=== PATIENT | female | born 1955 | race Caucasian/White ===

== ENCOUNTER → 2024-11-20 | Outpatient (CLI) | payer MEDICARE, SELFPAY ==
--- NOTE | 2024-11-20 08:45 | XR_ITS ---
Examination: Screening digital mammography, bilateral Computer aided detection 3-D breast Tomosynthesis, bilateral Date and time of exam: November 20, 2024 0844 hrs. Compared to mammograms dating to January 02, 2021 Indication: Screening Technique: Nonmagnified MLO, CC views of the breasts to been obtained, reconstructed from 3-D Tomosynthesis images. R2 computer aided detection program utilized for evaluation of suspicious masses and/or abnormal calcifications. 3-D Tomosynthesis images obtained. Findings: Scattered areas of fibroglandular density. Breast biopsy markers nipple level and lower left breast No interval suspicious masses Impression: BI-RADS category II: Benign Findings. Recommend 1 year follow-up mammogram.
== END | disposition home or self-care (01) ==
PROVIDERS: PCP Family Medicine; Referring Provider Family Medicine; Visit Provider Family Medicine
DX: Z12.31 Encounter for screening mammogram for malignant neoplasm of breast (principal); R92.323 Mammographic fibroglandular density, bilateral breasts
CPT/HCPCS: 77063; 77067

== ENCOUNTER 2024-12-28 05:53 | Emergency (ER) | payer MEDICARE, BC, SELFPAY ==
[2024-12-28 05:53] VITALS: BMI 25.7
[2024-12-28 06:00] VITALS: BP 178/95; PULSE 78; RESP 19; TEMP 36.4; O2SAT 100
--- NOTE | 2024-12-28 06:34 | EKG_ITS ---
[facility] Test Date: 2024-12-28 Pat Name: LATONYA GARCIA Department: Room: - Gender: Female Manager [place] : [id number] Requested By: Deepak Sahu Order Number: [id number] Reading MD: Deepak Sahu Measurements Intervals [place] Rate: 79 P: 34 TN: 172 QRS: 24 QRSD: 84 T: 33 QT: 412 QTc: 473 Interpretive Statements SINUS RHYTHM POSSIBLE LEFT VENTRICULAR HYPERTROPHY [VOLTAGE CRITERIA PLUS LAE OR QRS WIDENING] No previous ECG available for comparison /store/S0/[id number].pdf
--- NOTE | 2024-12-28 06:34 | PD.EDRME ---
Rapid Medical Screening Exam RME Arrival date/time: 12/28/24 05:53 69-year-old female with a history of hypertension, hypothyroidism, presents to the emergency room with a chief complaint of a headache and fatigue x 3 days. Patient states she has also had multiple elevated blood pressure readings. Patient states she has taken 3 different types of blood pressure medication. I have greeted and performed a focused initial assessment of this patient. A comprehensive ED assessment and evaluation of the patient, analysis of all test results, and completion of the medical decision making process will be conducted by additional ED providers. Chief Complaint: Headache Time Seen by Provider: 12/28/24 06:22 Vital signs: Vital Signs Temperature 97.5 F 12/28/24 06:00 Pulse Rate 78 12/28/24 06:00 Respiratory Rate 19 12/28/24 06:00 Blood Pressure 178/95 H 12/28/24 06:00 Pulse Oximetry (%) 100 12/28/24 06:00 Oxygen Delivery Method Room Air 12/28/24 06:00 Vital signs reviewed by provider: Yes
[2024-12-28 07:03] LABS: Basophils % (Auto) 0 % (0-2.5); Eosinophils % (Auto) 0 % (0-10); Hemoglobin 14.2 g/dL (12.0-16.0); Immature Granulocytes % (Auto) 0 % (0-0); Immature Granulocytes Auto 0.03 Thou/mm3 (0.00-0.00); Lymphocytes # (Auto) 1.7 Thou/mm3 (1.0-4.8); Lymphocytes % (Auto) 17 % (10-50); Mean Corpuscular HGB Conc 35.5 g/dl (31.0-37.0); Mean Corpuscular Hemoglobin 30.7 pg (25.0-35.0); Mean Corpuscular Volume 86 fL (80-100); Monocytes # (Auto) 0.6 Thou/mm3 (0.0-0.8); Monocytes % (Auto) 6 % (0-12); Neutrophils # (Auto) 7.8 Thou/mm3 (1.8-7.7); Neutrophils % (Auto) 77 % (37-80); Nucleated Red Blood Cell % 0 /100 WBC (0); Platelet Count 320 Thou/mm3 (140-440); RDW Standard Deviation 41.2 fL (36.4-46.3); Red Blood Count 4.63 Miln/mm3 (4.00-5.20); White Blood Count 10.2 Thou/mm3 (3.6-11.0)
[2024-12-28 07:25] LABS: Alanine Aminotransferase 15 U/L (10-49); Albumin, Serum 5.1 gm/dL (3.4-4.8); Albumin/Globulin Ratio 2.2 (1.2-2.2); Alkaline Phosphatase 50 U/L (46-116); Anion Gap 14 (7-16); Aspartate Amino Transferase 26 U/L (0-34); BUN/Creatinine Ratio 11 Ratio (12-20); Blood Urea Nitrogen 9 mg/dL (9-23); Calcium 9.3 mg/dL (8.3-10.6); Calcium (Corrected) 9.3 mg/dL (8.5-10.1); Carbon Dioxide 24.5 mMol/L (20.0-31.0); Chloride 90 mMol/L (98-107); Creatinine (Component) 0.8 mg/dL (0.6-1.3); Estimated Creatinine Clearance 61.1 mL/min (>60); Globulin 2.3 gm/dL (2.3-3.5); Glucose 113 mg/dL (74-106); Osmolality,Calculated 256 (275-295); Sodium 128 mMol/L (136-145); Total Protein 7.4 gm/dL (5.7-8.2); Troponin I < 0.020 ng/mL (0.0-0.045); eGFR > 60 See Note
[2024-12-28 07:36] LABS: B-Type Natriuretic Peptide 32 pg/mL (0-100)
[2024-12-28 07:45] LABS: INR 1.1 (0.9-1.3); Partial Thromboplastin Time 31.9 Seconds (22.0-36.0); Prothrombin Time 11.6 Seconds (9.0-12.2)
[2024-12-28 07:48] LABS: Collection Type, Urine Clean Catch
[2024-12-28 07:52] LABS: Bilirubin,Urine Negative (Negative); Blood,Urine Negative (Negative); Clarity,Urine Clear (Clear/Hazy); Color,Urine Lt-Yellow (Lt Yel-Yel); Glucose, Urine Negative (Negative); Hyaline Casts,Urine < 1 /hpf (0-1); Ketones,Urine 2+ (Negative); Leukocyte Esterase,Urine Positive (Negative); Nitrite,Urine Negative (Negative); Protein,Urine Negative (Neg - Trace); RBC,Urine 1 /hpf (0-3); Specific Gravity,Urine 1.015 (1.001-1.035); Squamous Epithelial Cell,Urine 1 /hpf (0-5); Urobilinogen,Urine Negative mg/dL (0.0-1.0); WBC,Urine 11 /hpf (0-5)
[2024-12-28 08:04] LABS: Magnesium 2.1 mg/dL (1.6-2.6)
[2024-12-28] MEDS: POTASSIUM CHLORIDE 20 mEq TABCR 40 MEQ PO ×2 (08:05→12:49)
[2024-12-28] MEDS: SODIUM CHLORIDE 0.9% 1000 ML 1,000 ML 100 ML IV (08:06)
[2024-12-28 08:28] LABS: Culture Indicated,Urine Yes
--- NOTE | 2024-12-28 08:29 | EDNOTE_ITS ---
ED Headache RME/HPI General Chief Complaint: Headache Stated Complaint: HEADACHE/ DIZZINESS Time Seen by Provider: 12/28/24 06:22 Arrival date/time: 12/28/24 05:53 RME / HPI RME / HPI Narrative: The patient is a 69-year-old female with significant past medical history of long standing hypertension, hypothyroidism presented to ED with chief complaint of headache that started 2 days ago. The patient's blood pressure was elevated at home, and visited her PCP yesterday evening, and was started on amlodipine 10 mg at night. However, this morning her blood pressure were elevated and continued to have headache. She is currently taking lisinopril, hydrochlorothiazide and amlodipine. She denied any lightheadedness, sore throat, chest pain, SOB, abdominal pain, any changes in bowel or bladder habit, leg swelling, fever or chills, nausea or vomiting. Related Data Home Medications ?Medication ?Instructions ?Recorded ?Confirmed levothyroxine 50 mcg capsule 50 mcg PO QDAY 12/18/18 lisinopril 20 mg tablet 20 mg PO QDAY 12/18/18 nebivolol 5 mg tablet (Bystolic) 5 mg PO QDAY 12/18/18 Previous Rx's ?Medication ?Instructions ?Recorded ibuprofen 600 mg tablet 600 mg PO Q6HR PRN PAIN #30 tabs 01/01/17 tramadol 50 mg tablet (Ultram) 50 mg PO Q6HR PRN PAIN #12 tabs 01/01/17 azithromycin 250 mg tablet See Rx Instructions PO .COM PLEX #6 12/19/18 (Zithromax Z-Claudio) tabs acetaminophen 500 mg tablet 500 mg PO Q6H PRN headache #20 tabs 12/28/24 ciprofloxacin HCl 500 mg tablet 500 mg PO BID #14 tabs 12/28/24 Allergies Allergy/AdvReac Type Severity Reaction Status Date / Time amoxicillin Allergy Rash Verified 12/19/18 20:31 Review of Systems Review of Systems Systems Reviewed: All systems reviewed, normal except as documented (Above) ED Exam Narrative Physical exam: General: Elderly, cooperative female, no acute distress, Alert and Oriented x 3 HEENT: Moist mucous membranes, oropharynx clear Neck: Supple, No masses, No JVD CVS: S1S2 Regular rate and rhythm, No murmurs, rubs or gallops Lungs: Clear to auscultation with no accessory use, no wheeze no rhonchi Abd: Soft, NT/ND, +BS, no organomegaly Ext: No edema, warm and well perfused Skin: No rash Psych: Appropriate mood and affect Course Quality Measures none Orders Category Date Time Status EKG (ED ONLY) *Do not use* NOW Care 12/28/24 06:[address] head/brain wo con Stat Exams 12/28/24 10:50 Completed EKG (ED Only) Stat Exams 12/28/24 06:34 Draft B-Type Natriuretic Peptide Stat Lab 12/28/24 06:45 Completed CBC Stat Lab 12/28/24 06:45 Completed Comprehensive Metabolic Panel Stat Lab 12/28/24 06:45 Completed Magnesium Stat Lab 12/28/24 06:45 Completed PT [Prothrombin Time with INR] Stat Lab 12/28/24 06:45 Completed PTT [Partial Thromboplastin Time] Stat Lab 12/28/24 06:45 Completed Troponin I Stat Lab 12/28/24 06:45 Completed UA, C/S IF [Urinalysis, C/S if Indicated] Stat Lab 12/28/24 07:00 Completed Urine Culture Stat Lab 12/28/24 07:00 Received Acetaminophen Tab [Tylenol Tab] Med 12/28/24 10:37 Discontinued 650 mg PO X1 ONE Ketorolac Inj [Toradol Inj] Med 12/28/24 11:50 Discontinued 15 mg IVP X1 ONE Labetalol IV [Trandate IV] Med 12/28/24 09:06 Discontinued 10 mg IVP X1 ONE Metoclopramide Inj [Reglan Inj] Med 12/28/24 10:51 Discontinued 5 mg IVP X1 ONE Morphine Inj Med 12/28/24 11:50 Discontinued 4 mg IVP X1 ONE Ondansetron Inj [Zofran Inj] Med 12/28/24 11:50 Discontinued 4 mg IVP X1 ONE POTASSIUM CHL 10 mEq IVPB [Kcl Ivpb] Med 12/28/24 11:51 Active 10 meq in 100 ml IV X1 Potassium Chloride [K-Dur] Med 12/28/24 07:37 Discontinued 40 meq PO X1 ONE Potassium Chloride [K-Dur] Med 12/28/24 10:07 Discontinued 40 meq PO X1 ONE Sodium Chloride 0.9% 1000 ml [Ns] 1,000 ml Med 12/28/24 07:53 Active IV 100 mls/hr Sodium Chloride 0.9% 1000 ml [Ns] 1,000 ml Med 12/28/24 11:51 Active IV 999 mls/hr cefTRIAXone/D5w 1gm IV premix [Rocephin/D5w 1gm IV Med 12/28/24 10:08 Discontinued premix] 1 gm in 50 ml IV X1 hydrALAZINE INJ [Apresoline Inj] Med 12/28/24 09:08 Discontinued 10 mg IVP X1 ONE Vital Signs Vital signs: Vital Signs Temperature 97.5 F 12/28/24 06:00 Pulse Rate 78 12/28/24 06:00 Respiratory Rate 19 12/28/24 06:00 Blood Pressure 178/95 H 12/28/24 06:00 Pulse Oximetry (%) 100 12/28/24 06:00 Oxygen Delivery Method Room Air 12/28/24 06:00 Headache MDM Narrative MDM Narrative:: The patient is a 69-year-old female with significant past medical history of long standing hypertension, hypothyroidism and multiple episodes of UTI presented to ED with chief complaint of headache that started 2 days ago. The patient's blood pressure was elevated at home, and visited her PCP yesterday evening, and was started on amlodipine 10 mg at night. However, this morning her blood pressure were elevated and continued to have headache. She is currently taking lisinopril, hydrochlorothiazide and amlodipine. She denied any lightheadedness, sore throat, chest pain, SOB, abdominal pain, any changes in bowel or bladder habit, leg swelling, fever or chills, nausea or vomiting. Her initial vitals were blood pressure 178/95 that trended up to 180/90s, pulse 78, RR 19, saturating 100% on room air. CBC fairly stable, coagulation panel stable, sodium 128, potassium 3.0, chloride 90, blood sugar 113, troponin less than 0.020, UA revealed 2+ ketones, leukocyte esterase positive, WBC 11. EKG revealed sinus rhythm with QTc of 473 ms. Her 1 L of IV normal saline hydralazine 10 mg IV x 1, KCl 40 mEq p.o. x 2, ketorolac 15mg IV x1, Reglan 5mg IV x1, zofran 4mg IV x1 and morphine 4mg IV x1. Her blood pressures were stable, and she reported improvement in her headache. She was plan to discharge home. Patient data External records reviewed:: [facility] previous records Clinical information provided by:: patient Social determinants that could affect healthcare access:: none Patient has the following chronic illnesses:: See above How is presenting disease/condition affected by chronic disease/condition?: exacerbated by Evaluation data The following diagnostics were reviewed and interpreted by me:: lab results and EKG tracing(s) Lab and/or radiology exams considered but not ordered:: None Interpretation Summary: See above Medications / Prescriptions Medications or Prescriptions considered but not ordered:: None Medication administrations:: Medication Administration History Sodium Chloride (Ns) 1,000 mls @ 100 mls/hr IV .Q10H LISY Stop: 01/27/25 07:52 Last Admin: 12/28/24 08:06 Dose: 100 mls/hr Documented By: LAUREN Sodium Chloride (Ns) 1,000 mls @ 999 mls/hr IV .Q1H1M ONE Stop: 12/28/24 12:51 Last Admin: 12/28/24 12:04 Dose: 999 mls/hr Documented By: LEESA Potassium Chloride (Kcl Ivpb) 10 meq in 100 mls @ 100 mls/hr IV X1 ONE Stop: 12/28/24 12:50 Last Admin: 12/28/24 12:03 Dose: 100 mls/hr Documented By: LEESA Discontinued Medications Acetaminophen (Acetaminophen 325 Mg Tablet) 650 mg PO X1 ONE Stop: 12/28/24 10:38 Last Admin: 12/28/24 10:45 Dose: 650 mg Documented By: LAUREN Hydralazine HCl (Hydralazine Inj 20 Mg/Ml Vial) 10 mg IVP X1 ONE Stop: 12/28/24 09:09 Last Admin: 12/28/24 09:47 Dose: 10 mg Documented By: LAUREN Ceftriaxone Sodium/Dextrose (Rocephin/D5w 1gm Iv Premix) 1 gm in 50 mls @ 100 mls/hr IV X1 ONE Stop: 12/28/24 10:37 Last Infusion: 12/28/24 11:08 Dose: Infused Documented By: Admin: 12/28/24 10:38 Dose: 100 mls/hr Documented By: LAUREN Ketorolac Tromethamine (Ketorolac Inj 30 Mg/Ml Vial) 15 mg IVP X1 ONE Stop: 12/28/24 11:51 Last Admin: 12/28/24 12:03 Dose: 15 mg Documented By: EF Labetalol HCl (Labetalol Inj 5 Mg/Ml Vial 20 Ml) 10 mg IVP X1 ONE Stop: 12/28/24 09:07 Last Admin: 12/28/24 09:48 Dose: Not Given Documented By: LAUREN Non-Admin Reason: Cancelled by Provider Metoclopramide HCl (Metoclopramide Inj 5 Mg/Ml Vial 2 Ml) 5 mg IVP X1 ONE; Protocol Stop: 12/28/24 10:52 Last Admin: 12/28/24 10:54 Dose: 5 mg Documented By: LAUREN Morphine Sulfate (Morphine Sulf Inj 10 Mg/Ml Vial) 4 mg IVP X1 ONE Stop: 12/28/24 11:51 Last Admin: 12/28/24 12:03 Dose: 4 mg Documented By: EF Ondansetron HCl (Ondansetron Inj 2 Mg/Ml Inj 2 Ml) 4 mg IVP X1 ONE; Protocol Stop: 12/28/24 11:51 Last Admin: 12/28/24 12:03 Dose: 4 mg Documented By: LEESA Potassium Chloride (Potassium Chloride 20 Meq Tabcr) 40 meq PO X1 ONE Stop: 12/28/24 07:38 Last Admin: 12/28/24 08:05 Dose: 40 meq Documented By: Potassium Chloride (Potassium Chloride 20 Meq Tabcr) 40 meq PO X1 ONE Stop: 12/28/24 10:08 Last Admin: 12/28/24 11:52 Dose: Not Given Documented By: EF Non-Admin Reason: Cancelled by Provider See above Consultations Consultation(s) initiated? (list below): No Diagnosis Differential diagnosis headache: tension headache, headache, sinusitis and other (Hypertensive urgency) Most likely diagnosis given after review of the tests above:: Hypertensive urgency Admission Indicated Admission indicated?: not indicated Admission Request Was there a request for admission?: No Disposition Plan Disposition Plan: Discharge Discharge Attestation Discharge Attestation: The patient and all family members were given an opportunity to ask questions and understood the discharge instructions. Discharge instructions specifically effects, indications for sooner follow up or return to the emergency department, and the expected course of current diagnosis. Patient condition: Stable Discharge Plan Plan Patient Disposition: HOME (Self Care) Prescriptions/Referrals Prescriptions/Med Rec: New ciprofloxacin HCl 500 mg tablet 500 mg PO BID Qty: 14 0RF acetaminophen 500 mg tablet 500 mg PO Q6H PRN (Reason: headache) Qty: 20 0RF No Action lisinopril 20 mg tablet 20 mg PO QDAY levothyroxine 50 mcg capsule 50 mcg PO QDAY Bystolic 5 mg tablet 5 mg PO QDAY azithromycin [Zithromax Z-Claudio] 250 mg tablet See Rx Instructions PO .COMPLEX Qty: 6 0RF Rx Instructions: 500 mg po x 1 day then 250 mg po x 4 days tramadol [Ultram] 50 MG tablet 50 mg PO Q6HR PRN (Reason: PAIN) Qty: 12 0RF Rx Instructions: FOR PAIN, NOT TO EXCEED 8 TABS IN 24 HRS ibuprofen 600 MG tablet 600 mg PO Q6HR PRN (Reason: PAIN) Qty: 30 0RF Referrals: Shanti Griffith MD [Primary Care Provider] - In 1 week Problem List Clinical Impression: Asymptomatic hypertensive urgency, Headache, Dehydration with hyponatremia, Acute hypokalemia Patient/Caregiver Discharge Instructions Education Materials: Dehydration, Hyponatremia Dc Additional Instructions: You were discharged by Dr. Brown with the following recommendations: Please follow-up with your PCP within 1 week of discharge, and request for sodium and potassium lab work You have been started on: -Ciprofloxacin 500 Mg twice daily for 7 days for urinary tract infection - Acetaminophen 500 Mg every 6 hourly as needed for headache Continue taking all other medicines as prescribed -Recommended to return back to emergency department if your symptoms persists or worsens Print Language: Welsh Stand Alone Forms: [facility] Award Info., Patient Portal Info Letter
[2024-12-28 09:47] VITALS: BP 180/69; PULSE 73
[2024-12-28] MEDS: hydrALAZINE INJ 20 MG/ML VIAL 10 MG IVP (09:47)
[2024-12-28] MEDS: cefTRIAXone/D5w 1gm IV premix 1 GM/50 ML BAG IV (10:38)
[2024-12-28] MEDS: ACETAMINOPHEN 325 MG TABLET 650 MG PO (10:45)
[2024-12-28 10:50] VITALS: BP 155/68; PULSE 76; RESP 12; O2SAT 97
--- NOTE | 2024-12-28 10:50 | XR_ITS ---
Examination: CT brain head without contrast. 2-D sagittal coronal reconstructions Date and time of exam:December 28, 2024 1113 hours INDICATIONS: Onset headaches nausea today CTDI: vol (mGy):48.4 DLP: (mGycm):962 Technique: Multiple CT axial sections of the brain have been obtained, 5 mm slice thickness. Contrast has not been administered. 2-D sagittal, coronal reconstructions have been obtained Low dose protocols were performed. One or more of the following dose reduction techniques were used; automated exposure control, adjustment of the mA and/or KV according to patient size, use of iterative reconstruction technique. Findings: No significant ventricular enlargement. Mild encephalomalacia left frontal lobe Intra-axial or extra-axial hemorrhage density is not seen. No mass effect or midline shift Basal cisterns are not remarkable. Fourth ventricle is midline. Cranial vault intact. Impression: Negative for acute hemorrhage, mass effect or midline shift
--- NOTE | 2024-12-28 10:51 | PC.NURSE ---
Patient states she is not dizzy, she just doesn't feel right. Dizziness assessment not completed since patient denies dizziness
[2024-12-28] MEDS: METOCLOPRAMIDE INJ 5 MG/ML VIAL 2 ML IVP (10:54)
[2024-12-28] MEDS: MORPHINE SULF INJ 10 MG/ML VIAL 4 MG IVP (12:03)
[2024-12-28] MEDS: KETOROLAC INJ 30 MG/ML VIAL 15 MG IVP (12:03)
[2024-12-28] MEDS: ONDANSETRON INJ 2 MG/ML INJ 2 ML 4 MG IVP (12:03)
[2024-12-28] MEDS: POTASSIUM CHL 10 mEq IVPB 10 MEQ/100 ML BAG 100 MEQ IV (12:03)
[2024-12-28] MEDS: SODIUM CHLORIDE 0.9% 1000 ML 1,000 ML 999 ML IV (12:04)
[2024-12-28 13:19] VITALS: BP 136/67; PULSE 77; RESP 19; O2SAT 100
== END 2024-12-28 13:20 | disposition home or self-care (01) ==
PROVIDERS: Nurse Practitioner Family; Emergency Provider Student in an Organized Health Care Education/Training Program; PCP Family Medicine
DX: I16.0 Hypertensive urgency (principal); E86.0 Dehydration; E87.1 Hypo-osmolality and hyponatremia; E87.6 Hypokalemia; R51.9 Headache, unspecified; E03.9 Hypothyroidism, unspecified; I10 Essential (primary) hypertension
CPT/HCPCS: 36415; 70450; 80053; 81001; 83735; 83880; 84484; 85025; 85610; 85730; 87086; 93005; 96365; 96367; 96375; 99284; J0360; J0696; J1885; J2270; J2405; J2765; J3480; J7030; A9270

== ENCOUNTER → 2025-01-02 | Outpatient (CLI) | payer MEDICARE, BC, SELFPAY ==
[2025-01-02 11:12] LABS: Anion Gap 10 (7-16); BUN/Creatinine Ratio 13 Ratio (12-20); Blood Urea Nitrogen 10 mg/dL (9-23); Calcium 10.1 mg/dL (8.3-10.6); Carbon Dioxide 27.9 mMol/L (20.0-31.0); Chloride 89 mMol/L (98-107); Creatinine (Component) 0.8 mg/dL (0.6-1.3); Glucose 116 mg/dL (74-106); Magnesium 2.1 mg/dL (1.6-2.6); Osmolality,Calculated 255 (275-295); Potassium 3.8 mMol/L (3.4-5.1); Sodium 127 mMol/L (136-145); eGFR > 60 See Note
== END | disposition home or self-care (01) ==
LOC: COPL 10:13
PROVIDERS: PCP Family Medicine; Referring Provider Family Medicine; Visit Provider Family Medicine
DX: E87.1 Hypo-osmolality and hyponatremia (principal); E87.6 Hypokalemia
CPT/HCPCS: 36415; 80048; 83735

== ENCOUNTER → 2025-01-26 | Outpatient (CLI) | payer MEDICARE, BC, SELFPAY ==
[2025-01-26 10:22] LABS: Basophils % (Auto) 1 % (0-2.5); Eosinophils # (Auto) 0.1 Thou/mm3 (0.0-0.5); Eosinophils % (Auto) 2 % (0-10); Hematocrit 39.6 % (36.0-46.0); Hemoglobin 13.4 g/dL (12.0-16.0); Immature Granulocytes % (Auto) 0 % (0-0); Immature Granulocytes Auto 0.01 Thou/mm3 (0.00-0.00); Lymphocytes # (Auto) 1.9 Thou/mm3 (1.0-4.8); Lymphocytes % (Auto) 30 % (10-50); Mean Corpuscular HGB Conc 33.8 g/dl (31.0-37.0); Mean Corpuscular Hemoglobin 30.9 pg (25.0-35.0); Mean Corpuscular Volume 91 fL (80-100); Monocytes # (Auto) 0.5 Thou/mm3 (0.0-0.8); Monocytes % (Auto) 7 % (0-12); Neutrophils # (Auto) 3.9 Thou/mm3 (1.8-7.7); Neutrophils % (Auto) 61 % (37-80); Nucleated Red Blood Cell % 0 /100 WBC (0); Platelet Count 274 Thou/mm3 (140-440); RDW Standard Deviation 45.1 fL (36.4-46.3); Red Blood Count 4.34 Miln/mm3 (4.00-5.20); White Blood Count 6.4 Thou/mm3 (3.6-11.0)
[2025-01-26 10:46] LABS: Alanine Aminotransferase 22 U/L (10-49); Albumin, Serum 4.5 gm/dL (3.4-4.8); Albumin/Globulin Ratio 1.9 (1.2-2.2); Alkaline Phosphatase 62 U/L (46-116); Anion Gap 5 (7-16); Aspartate Amino Transferase 24 U/L (0-34); BUN/Creatinine Ratio 14 Ratio (12-20); Bilirubin,Total 0.8 mg/dL (0.3-1.2); Blood Urea Nitrogen 10 mg/dL (9-23); Calcium 9.3 mg/dL (8.3-10.6); Calcium (Corrected) 9.3 mg/dL (8.5-10.1); Carbon Dioxide 28.7 mMol/L (20.0-31.0); Chloride 105 mMol/L (98-107); Cholesterol 207 mg/dL (132-200); Creatinine (Component) 0.7 mg/dL (0.6-1.3); Globulin 2.4 gm/dL (2.3-3.5); Glucose 100 mg/dL (74-106); HDL Cholesterol 52 mg/dL (40-60); LDL Cholesterol,Calculated 126 mg/dL (0-130); Osmolality,Calculated 276 (275-295); Potassium 3.7 mMol/L (3.4-5.1); Sodium 139 mMol/L (136-145); Thyroid Stimulating Hormone 6.21 uIU/mL (0.55-4.78); Total Protein 6.9 gm/dL (5.7-8.2); Triglycerides 146 mg/dL (30-150); eGFR > 60 See Note
== END | disposition home or self-care (01) ==
LOC: COPL 09:08
PROVIDERS: PCP Family Medicine; Referring Provider Family Medicine; Visit Provider Family Medicine
DX: I10 Essential (primary) hypertension (principal); E03.8 Other specified hypothyroidism; E87.1 Hypo-osmolality and hyponatremia
CPT/HCPCS: 36415; 80053; 80061; 84439; 84443; 85025

== ENCOUNTER → 2025-03-13 | Outpatient (CLI) | payer MEDICARE, BC, SELFPAY ==
[2025-03-13 11:56] LABS: Anion Gap 9 (7-16); BUN/Creatinine Ratio 14 Ratio (12-20); Blood Urea Nitrogen 11 mg/dL (9-23); Calcium 9.3 mg/dL (8.3-10.6); Carbon Dioxide 28.2 mMol/L (20.0-31.0); Chloride 100 mMol/L (98-107); Creatinine (Component) 0.8 mg/dL (0.6-1.3); Free T4 (Free Thyroxine) 1.34 ng/dL (0.89-1.76); Glucose 99 mg/dL (74-106); Osmolality,Calculated 273 (275-295); Potassium 3.8 mMol/L (3.4-5.1); Sodium 137 mMol/L (136-145); Thyroid Stimulating Hormone 2.95 uIU/mL (0.55-4.78); eGFR > 60 See Note
== END | disposition home or self-care (01) ==
LOC: COPL 10:35
PROVIDERS: PCP Family Medicine; Referring Provider Family Medicine; Visit Provider Family Medicine
DX: I10 Essential (primary) hypertension (principal); E03.8 Other specified hypothyroidism
CPT/HCPCS: 36415; 80048; 84439; 84443

== ENCOUNTER → 2025-07-20 | Outpatient (CLI) | payer MEDICARE, BC, SELFPAY ==
[2025-07-20 13:54] LABS: Collection Type, Urine Clean Catch
[2025-07-20 14:23] LABS: Bilirubin,Urine Negative (Negative); Blood,Urine Negative (Negative); Clarity,Urine Clear (Clear/Hazy); Color,Urine Lt-Yellow (Lt Yel-Yel); Glucose, Urine Negative (Negative); Ketones,Urine Negative (Negative); Leukocyte Esterase,Urine Negative (Negative); Nitrite,Urine Negative (Negative); PH,Urine 6.5 (5.0-7.0); Protein,Urine Negative (Neg - Trace); RBC,Urine 4 /hpf (0-3); Specific Gravity,Urine 1.014 (1.001-1.035); Squamous Epithelial Cell,Urine 1 /hpf (0-5); Urobilinogen,Urine Negative mg/dL (0.0-1.0); WBC,Urine 3 /hpf (0-5)
[2025-07-20 14:30] LABS: Anion Gap 10 (7-16); BUN/Creatinine Ratio 10 Ratio (12-20); Blood Urea Nitrogen 7 mg/dL (9-23); Calcium 9.1 mg/dL (8.3-10.6); Carbon Dioxide 26.9 mMol/L (20.0-31.0); Chloride 93 mMol/L (98-107); Creatinine (Component) 0.7 mg/dL (0.6-1.3); Glucose 100 mg/dL (74-106); Osmolality,Calculated 258 (275-295); Potassium 3.3 mMol/L (3.4-5.1); Sodium 130 mMol/L (136-145); eGFR > 60 See Note
== END | disposition home or self-care (01) ==
LOC: COPL 13:05
PROVIDERS: PCP Family Medicine; Referring Provider Family Medicine; Visit Provider Family Medicine
DX: I10 Essential (primary) hypertension (principal); R31.9 Hematuria, unspecified
CPT/HCPCS: 36415; 80048; 81001; 87086